=== PATIENT | female | born 2000 | race Two or more races ===

== ENCOUNTER 2022-02-23 23:55 | Emergency (ER) | payer SELFPAY ==
[2022-02-24 03:06] LABS: HEMOGLOBIN 13.4 gm/dl (12.3-15.3); RED BLOOD COUNT 4.47 M/UL (4.00-5.10); WHITE BLOOD COUNT 10.9 K/UL (4.5-11.0)
[2022-02-24 03:24] LABS: BUN/CREATININE RATIO 14 (0-10)
[2022-02-24] MEDS ORDERED: CYCLOBENZAPRINE10 MG PO (04:20)
[2022-02-24] MEDS ORDERED: TORADOL 10 MG T10 MG PO (04:20)
== END 2022-02-24 04:34 | disposition home or self-care (01) ==
LOC: ER1 23:55
DX: M62.830 Muscle spasm of back (principal)
CPT/HCPCS: 80053; 81001; 84703; 85025; 87086; 96374; 99283; J1885